=== PATIENT | female | born 1960 | race Caucasian/White ===

== ENCOUNTER 2017-03-08 10:53 | Day surgery (SDC) | payer OTHER ==
[~2017-03-08] VITALS: Ht 170.2 cm; Wt 133.8 kg
[~2017-03-08 10:53] MED LIST: AMT25T PO; LORA1TAB PO; PHEN-528 PO; Sodium Chloride LOK Flush 10 mL Syringe IV PRN; fentaNYL-PF 50 mCg/mL 2 mL Inj IVPUSH PRN
[2017-03-08 11:11] VITALS: BP 145/88; PULSE 90; RESP 16; O2SAT 97
[2017-03-08] MEDS: 0.9% Sodium Chloride 1,000 ML IV PRN ×2 (11:16→11:40)
[2017-03-08 12:30] VITALS: BP 133/72; PULSE 76; O2SAT 95
[2017-03-08 12:39] VITALS: BP 134/71; PULSE 76; O2SAT 96
--- NOTE | 2017-03-08 23:30 | ENDO ---
[address] [address] ENDOSCOPY PROCEDURE PATIENT: JOHN MURPHY : 1960 MR#: [id number] ADMIT: 03/08/2017 JOB ID: [id number] DATE OF PROCEDURE: 03/08/2017 PRIMARY PROVIDER: Elvira Holder PA-C. PROCEDURE: Colonoscopy. INDICATIONS: A 56-year-old female with a personal history of colon polyps returning for surveillance. EQUIPMENT: [id number] SEDATION: 1. Versed 5 mg. 2. Fentanyl 100 mcg. COMPLICATIONS: None identified. BOWEL PREPARATION: Fair, adequate exam. PROCEDURE INFORMATION: After the risks and benefits were explained, written and verbal informed consent was obtained. The patient was brought into the endoscopy suite and placed into the left lateral decubitus position. Sedation was achieved using the above-stated medications with the addition of oxygen via nasal cannula. Digital rectal examination was accomplished. Mild to moderate internal hemorrhoids noted. The scope was introduced into the rectum and advanced to the cecum as identified by the appendiceal orifice and ileocecal valve. The scope was slowly withdrawn to carefully examine the mucosa for any defects or lesions. Multiple direct views were made through the dentate line for exclusion of pathology. The colon was decompressed. The scope was removed from the patient who tolerated the procedure well. FINDINGS: Moderate diverticulosis was encountered through the left colon. No significant polyps, mass lesions, or inflammatory features identified throughout. ENDOSCOPIC DIAGNOSES: 1. Diverticulosis. 2. Hemorrhoids. RECOMMENDATIONS: Repeat colonoscopy in five years considering personal history of colon polyps.
== END 2017-03-08 23:59 | disposition home or self-care (01) ==
LOC: END 10:53
PROVIDERS: ATTEND Internal Medicine Gastroenterology
DX: Z12.11 Encounter for screening for malignant neoplasm of colon (principal); Z86.010 Personal history of colon polyps; K57.30 Diverticulosis of large intestine without perforation or abscess without bleeding; K64.9 Unspecified hemorrhoids; I10 Essential (primary) hypertension; E78.5 Hyperlipidemia, unspecified; F41.9 Anxiety disorder, unspecified; E66.01 Morbid (severe) obesity due to excess calories; Z68.42 Body mass index [BMI] 45.0-49.9, adult
CPT/HCPCS: 99153; G0105; G0500; J2250; J3010; J7030